=== PATIENT | female | born 1980 | race Caucasian/White ===

== ENCOUNTER 2023-06-16 06:07 | Day surgery (SDC) | payer OTHER ==
[~2023-06-16] VITALS: Ht 167.6 cm; Wt 97.1 kg
[2023-06-16] MEDS ORDERED: Lactated Ringer's 1,000 ML IV ONE ×2 (06:12→06:50)
[2023-06-16] MEDS ORDERED: SPIR50 PO (07:00)
[2023-06-16] MEDS ORDERED: ZOLOFT50 MG PO (07:00)
[2023-06-16] MEDS ORDERED: THERA-D2000 UNIT PO (07:01)
[2023-06-16] MEDS ORDERED: Hair, Skin & N1 EACH PO (07:01)
[2023-06-16] MEDS ORDERED: METF500 PO (07:01)
[2023-06-16] MEDS ORDERED: DIPH50 PO (07:02)
[2023-06-16] MEDS ORDERED: WEGOVY1 MG/0.5 M SQ (07:02)
[2023-06-16] MEDS ORDERED: propofoL 20 ML IV ONE ×2 (07:13→07:14)
[2023-06-16] MEDS ORDERED: FentaNYL Citrate 50 MCG/ML 2 ML Injection ONE (07:14)
[2023-06-16] MEDS ORDERED: Rocuronium Bromide 10 MG/ML 5ML Injection IV ONE (07:19)
[2023-06-16] MEDS ORDERED: Dexamethasone Sod Phos 10 MG/ML 1ML VIAL ONE (07:19)
[2023-06-16] MEDS ORDERED: Ondansetron HCl 2 MG / ML 2ML Vial ONE (07:19)
[2023-06-16] MEDS ORDERED: Lidocaine 1%-Epineph 1:200000 30 ML SDV INJ ONE (08:00)
--- NOTE | 2023-06-16 08:14 | NUR ---
06/16/23 0814 Razia Hightower 1% LIDO 20MLS MIXED WITH 0.1ML OF EPI 1MG/ML TO CREATE 1:200,000 MD AND CHARGE NURSE AWARE.
[2023-06-16] MEDS ORDERED: Ketorolac Tromethamine 30mg Vial ONE (08:24)
[2023-06-16 09:02] VITALS: BP 121/88
--- NOTE | 2023-06-16 09:50 | NUR ---
06/16/23 0950 Ayo Kemp PT REPORTED MILD NAUSEA AT TIME OF D/C. SHE STATED NAUSEA WAS BASELINE FOR HER AND REFUSED IV NAUSEA MEDICATION. SHE REPORTED 3-4/10 PAIN AT TIME OF D/C. SHE DESCRIBED PAIN TOLERABLE AND EXPRESSED READINESS TO RETURN HOME.
== END 2023-06-16 09:40 | disposition home or self-care (01) ==
LOC: ORSCSDS 06:07
PROVIDERS: Otolaryngology
PROC: 0GTG0ZZ Resection of Left Thyroid Gland Lobe, Open Approach (ICD-10-PCS; principal; 2023-06-16 07:30)
DX: C73 Malignant neoplasm of thyroid gland (principal); Z79.899 Other long term (current) drug therapy; E66.9 Obesity, unspecified; Z68.34 Body mass index [BMI] 34.0-34.9, adult
CPT/HCPCS: 82947; 88307; J1100; J1885; J2405; J2704; J3010; J7120

== ENCOUNTER 2023-07-07 09:16 | Day surgery (SDC) | payer OTHER ==
[~2023-07-07] VITALS: Ht 167.6 cm; Wt 97.9 kg
[2023-07-07 13:58] VITALS: BP 121/90
== END 2023-07-07 14:59 | disposition home or self-care (01) ==
LOC: ORSCSDS 09:16
PROC: 0GTK0ZZ Resection of Thyroid Gland, Open Approach (ICD-10-PCS; principal; 2023-07-07)
DX: C73 Malignant neoplasm of thyroid gland (principal); K21.9 Gastro-esophageal reflux disease without esophagitis; E66.9 Obesity, unspecified; Z68.34 Body mass index [BMI] 34.0-34.9, adult; E11.9 Type 2 diabetes mellitus without complications; Z79.84 Long term (current) use of oral hypoglycemic drugs; Z79.899 Other long term (current) drug therapy

== ENCOUNTER → 2024-09-22 | Outpatient (CLI) | payer OTHER ==
[~2024-09-22] MED LIST: DIPH50 PO; Hair, Skin & N1 EACH PO; METF500 PO; SPIR50 PO; THERA-D2000 UNIT PO; WEGOVY1 MG/0.5 M SQ; ZOLOFT50 MG PO
[2024-09-22 12:45] LABS: Bacterial Vaginosis PCR Positive (NEGATIVE); Candida Group, PCR NOT DETECTED (NOT DETECT); Candida glabrata-krusei, PCR NOT DETECTED (NOT DETECT)
[2024-09-22 13:18] LABS: Chlamydia Trachomatis Vaginal NOT DETECTED (NOT DETECT); Neisseria Gonorrhoea Vaginal NOT DETECTED (NOT DETECT)
[2024-09-24 15:31] LABS: HIV 1,2 COMBO ANTIGEN/ANTIBODY Negative (Negative)
[2024-09-24 16:33] LABS: HEPATITIS A ANTIBODY, IGM Negative (Negative); HEPATITIS C AB CIA INTERP Negative (Negative); HEPATITIS C ANTIBODY CIA INDEX 0.09 IV
== END ==
LOC: LAB 09:31 → LAB SHORT 09:31
PROVIDERS: Nurse Practitioner Family
DX: Z11.3 Encounter for screening for infections with a predominantly sexual mode of transmission (principal)
CPT/HCPCS: 80074; 81515; 86592; 87389; 87491; 87591

== ENCOUNTER → 2024-11-08 | Outpatient (CLI) | payer OTHER ==
[2024-11-11 22:54] LABS: C. TRACHOMATIS BY TMA,THINPREP Negative (Negative); N. GONORRHOEAE BY TMA,THINPREP Negative (Negative)
[2024-11-22 14:45] LABS: HPVG SOURCE Cervix
== END | disposition home or self-care (01) ==
LOC: LAB SHORT 17:23 → LAB 17:23
PROVIDERS: Obstetrics & Gynecology
DX: Z01.419 Encounter for gynecological examination (general) (routine) without abnormal findings (principal); Z11.3 Encounter for screening for infections with a predominantly sexual mode of transmission
CPT/HCPCS: 87491; 87591; 87624; 87625; G0145

== ENCOUNTER → 2025-01-10 | Outpatient (CLI) | payer OTHER | LOC: LAB 18:44 | DX: Z20.2 Contact with and (suspected) exposure to infections with a predominantly sexual mode of transmission (principal) ==